=== PATIENT | female | born 1950 | race Caucasian/White ===

== ENCOUNTER 2018-10-05 21:31 | Inpatient (IN) | payer MEDICAID ==
[~2018-10-05] VITALS: Ht 157.5 cm; Wt 61.7 kg
[2018-10-05] MEDS ORDERED: SODIUM CHLORIDE 0.9% 1,000 ML IV ONE (23:30)
[2018-10-05] MEDS ORDERED: DEXAMETHASONE 10 MG/ML VIAL IV ONE (23:30)
[2018-10-05] MEDS ORDERED: ONDANSETRON HCL 4MG/2ML INJ IV STA (23:30)
[2018-10-05] MEDS ORDERED: LEVETIRACETAM 500MG PREMIX 100 ML IV ONE (23:30)
[2018-10-06] VITALS (9 sets, daily range): BP systolic 99–115; BP diastolic 62–67
[2018-10-06 00:12] LABS: BASOPHILS % 0.4 % (0.0-2.0); EOSINOPHILS % 0.4 % (0.0-5.0); HEMATOCRIT. 31.7 % (36.0-48.0); HEMOGLOBIN. 10.8 g/dL (12.0-16.0); LYMPHOCYTES % 19.5 % (20.0-50.0); MEAN CORPUSCULAR VOLUME 88.1 fL (81.0-99.0); MEAN PLATELET VOLUME 6.6 fl (7.4-10.4); MONOCYTES % 7.3 % (2.0-8.0); NEUTROPHILS % 72.4 % (40.0-76.0); PLATELET 297 x1000/uL (130-400); RED CELL DISTRIBUTION WIDTH 15.3 % (11.6-14.6)
[2018-10-06 00:29] LABS: CHLORIDE 101 mEq/L (98-107)
[2018-10-06 00:30] LABS: INR 1.1; PROTHROMBIN TIME 11.1 sec (9.6-11.0)
[2018-10-06] MEDS ORDERED: ONDANSETRON HCL 4MG/2ML INJ IV PRN (11:00)
[2018-10-06] MEDS ORDERED: LEVETIRACETAM 500 MG in SODIUM CHLORIDE 0.9% 100 ML IV SCH (11:00)
[2018-10-06] MEDS ORDERED: ACETAMINOPHEN 325MG TABLET PO PRN (11:00)
[2018-10-06] MEDS ORDERED: DEXTROSE 50% WATER 50ML SYRINGE IV PRN (11:00)
[2018-10-06] MEDS ORDERED: LORAZEPAM 2MG/ML CPJ IV PRN (11:00)
[2018-10-06] MEDS ORDERED: PNEUMOCOCCAL 23-VAL P-SAC VAC 0.5 ML IM ONE (12:00)
[2018-10-06] MEDS: BLOOD SUGAR DIAGNOSTIC STRIP TEST SCH ×3 (12:34→21:00)
[2018-10-06] MEDS: DEXAMETHASONE 4MG/ML 1ML VIAL IV SCH ×3 (12:53→23:41)
[2018-10-06] MEDS: INSULIN LISPRO 100 UNITS/ML SUBCUT SCH ×3 (13:28→21:00)
[2018-10-06] MEDS ORDERED: GADOBENATE DIMEGLUMINE 529 MG/ML 10ML IV ONE (14:34)
[2018-10-06] MEDS: FLUCONAZOLE 100MG TABLET PO SCH (15:56)
[2018-10-06] MEDS: SODIUM CHLORIDE 0.9% 1,000 ML IV SCH (15:57)
[2018-10-06] MEDS ORDERED: DEXAMETHASONE 4MG TABLET PO SCH (17:00)
[2018-10-06] MEDS: CALCIUM CARBONATE/VITAMIN D3 500MG TABLET PO SCH (17:41)
[2018-10-06] MEDS: LEVETIRACETAM 500 MG in SODIUM CHLORIDE 0.9% 100 ML IV SCH (21:43)
[2018-10-07] VITALS (10 sets, daily range): BP systolic 92–113; BP diastolic 57–72
[2018-10-07] MEDS: DEXAMETHASONE 4MG/ML 1ML VIAL IV SCH ×2 (06:47→13:31)
[2018-10-07 07:00] LABS: BASOPHILS % 0.2 % (0.0-2.0); HEMATOCRIT. 30.5 % (36.0-48.0); HEMOGLOBIN. 10.6 g/dL (12.0-16.0); LYMPHOCYTES % 12.4 % (20.0-50.0); MEAN CORPUSCULAR HEMOGLOBIN 30.3 pg (28.0-32.0); MEAN CORPUSCULAR VOLUME 86.9 fL (81.0-99.0); MEAN PLATELET VOLUME 6.9 fl (7.4-10.4); MONOCYTES % 1.5 % (2.0-8.0); NEUTROPHILS % 85.9 % (40.0-76.0); PLATELET 346 x1000/uL (130-400); RED BLOOD CELL COUNT 3.51 mill/uL (4.2-5.4)
[2018-10-07 07:07] LABS: CHLORIDE 109 mEq/L (98-107)
[2018-10-07] MEDS: BLOOD SUGAR DIAGNOSTIC STRIP TEST SCH ×2 (07:46→12:30)
[2018-10-07] MEDS: INSULIN LISPRO 100 UNITS/ML SUBCUT SCH ×2 (07:47→13:33)
[2018-10-07] MEDS: LEVETIRACETAM 500 MG in SODIUM CHLORIDE 0.9% 100 ML IV SCH (08:29)
[2018-10-07] MEDS: CALCIUM CARBONATE/VITAMIN D3 500MG TABLET PO SCH (08:29)
[2018-10-07] MEDS: FLUCONAZOLE 100MG TABLET PO SCH (08:29)
[2018-10-07] MEDS: SODIUM CHLORIDE 0.9% 1,000 ML IV SCH (08:37)
[2018-10-07] MEDS ORDERED: POTASSIUM CHLORIDE 20MEQ TABLET SR PO SCH (09:00)
[2018-10-07] MEDS ORDERED: KEPP500 MT (15:08)
[2018-10-07] MEDS ORDERED: DEX4 MT (15:08)
== END 2018-10-07 17:15 | disposition home or self-care (01) | DRG 53 ==
LOC: ER 21:31 → 5EST 10-06 04:23 → EDBEDREQ 10-06 04:26 → EDBEDREQTM 10-06 04:26 → EDBEDREQSVC 10-06 04:26 → ENRESERV 10-06 07:43
PROVIDERS: ADMIT Internal Medicine; ATTEND Internal Medicine
DX: G40.409 Other generalized epilepsy and epileptic syndromes, not intractable, without status epilepticus (principal); G93.6 Cerebral edema; E44.0 Moderate protein-calorie malnutrition; C79.31 Secondary malignant neoplasm of brain; C50.912 Malignant neoplasm of unspecified site of left female breast; D64.9 Anemia, unspecified; E11.9 Type 2 diabetes mellitus without complications; R26.9 Unspecified abnormalities of gait and mobility; R20.0 Anesthesia of skin; E87.6 Hypokalemia; I10 Essential (primary) hypertension; H91.3 Deaf nonspeaking, not elsewhere classified; Z92.21 Personal history of antineoplastic chemotherapy; Z92.3 Personal history of irradiation; Z68.24 Body mass index [BMI] 24.0-24.9, adult
CPT/HCPCS: 36415; 70486; 70553; 71045; 73060; 73080; 80048; 82962; 84484; 92610; 93005; 93970; 96365; 96375; 97162; 97166; 99285; A9577; J1100; J1815; J1953; J2405; J7030; J7050

== ENCOUNTER 2018-11-02 19:10 | Inpatient (IN) | payer MEDICAID, OTHER ==
[~2018-11-02] VITALS: Ht 165.1 cm; Wt 57.6 kg
[~2018-11-02 19:10] MED LIST: DEX4 MT; KEPP500 MT
[2018-11-03] LABS: BASOPHILS % 0.2 % (0.0-2.0); EOSINOPHILS % 0.2 % (0.0-5.0); HEMATOCRIT. 31.8 % (36.0-48.0); HEMOGLOBIN. 10.9 g/dL (12.0-16.0); LYMPHOCYTES % 19.5 % (20.0-50.0); MEAN CORPUSCULAR HEMOGLOBIN 30.1 pg (28.0-32.0); MEAN CORPUSCULAR VOLUME 87.4 fL (81.0-99.0); MEAN PLATELET VOLUME 6.6 fl (7.4-10.4); MONOCYTES % 5.9 % (2.0-8.0); NEUTROPHILS % 74.2 % (40.0-76.0); PLATELET 282 x1000/uL (130-400); RED BLOOD CELL COUNT 3.64 mill/uL (4.2-5.4); RED CELL DISTRIBUTION WIDTH 15.1 % (11.6-14.6)
[2018-11-03 00:09] LABS: CHLORIDE 104 mEq/L (98-107)
[2018-11-03] MEDS ORDERED: MORPHINE SULFATE 4 MG/ML CPJ (NOT FOR IM USE) IV ONE (00:45)
[2018-11-03] MEDS ORDERED: ASPIRIN 81MG TABLET PO ONE (00:45)
[2018-11-03 00:49] LABS: CLARITY URINE CLOUDY (CLEAR); COLOR URINE YELLOW (YELLOW); KETONES URINE 1+ (NEGATIVE); LEUKOCYTE ESTERASE URINE NEGATIVE (NEGATIVE); NITRITE URINE NEGATIVE (NEGATIVE); OCCULT BLOOD URINE 2+ (NEGATIVE); PH URINE 5.5 (4.5-8.0); PROTEIN URINE 1+ (NEGATIVE); SPECIFIC GRAVITY URINE 1.045 (1.005-1.030)
[2018-11-03] MEDS ORDERED: MIDAZOLAM HCL 2 MG/2 ML VIAL IV ONE (01:00)
[2018-11-03] MEDS ORDERED: HEPARIN 25,000 UNITS PREMIX 500 ML IV ONE ×2 (01:30→03:00)
[2018-11-03] MEDS ORDERED: ETOMIDATE 2MG/ML 10ML VIAL IV ONE (01:30)
[2018-11-03] MEDS ORDERED: HEPARIN 5000 UNITS/ML VIAL IV ONE (01:30)
[2018-11-03] MEDS ORDERED: ACETAMINOPHEN 325MG TABLET PO PRN (02:30)
[2018-11-03] MEDS ORDERED: HYDROCODONE/ACETAMINOPHEN 5/325MG TABLET PO PRN (02:30)
[2018-11-03] MEDS ORDERED: ONDANSETRON HCL 4MG/2ML INJ IV PRN (02:30)
[2018-11-03] MEDS ORDERED: MORPHINE SULFATE 2 MG/ML CPJ (NOT FOR IM USE) IV PRN (02:30)
[2018-11-03] MEDS ORDERED: CLONIDINE 0.1MG TABLET PO PRN (02:30)
[2018-11-03 03:28] LABS: INR 1.2; PARTIAL THROMBOPLASTIN TIME 22.9 sec (23.4-31.0); PROTHROMBIN TIME 11.8 sec (9.6-11.0)
[2018-11-03 04:47] LABS: CREATINE KINASE MB FRACTION 3.5 ng/mL (0.5-3.6)
[2018-11-03 05:18] VITALS: BP 107/61
[2018-11-03 06:14] VITALS: BP 107/61
[2018-11-03] MEDS ORDERED: KEPP500 PO (06:35)
[2018-11-03] MEDS ORDERED: DEXA4TAB PO (06:35)
[2018-11-03 08:00] VITALS: BP 92/62
[2018-11-03] MEDS: METOPROLOL TARTRATE 25MG TABLET PO SCH ×2 (08:51→22:11)
[2018-11-03] MEDS ORDERED: ENOXAPARIN 60MG/0.6ML SYR SUBCUT SCH (09:00)
[2018-11-03] MEDS ORDERED: LORAZEPAM 2MG/ML CPJ IV PRN (09:30)
[2018-11-03] MEDS ORDERED: DEXTROSE 50% WATER 50ML SYRINGE IV PRN (12:00)
[2018-11-03] MEDS: BLOOD SUGAR DIAGNOSTIC STRIP TEST SCH ×2 (12:20→21:00)
[2018-11-03 12:26] LABS: T4 FREE 1.15 ng/dL (0.76-1.46)
[2018-11-03 12:50] VITALS: BP 102/64
[2018-11-03] MEDS: ENOXAPARIN 40MG/0.4ML SYR SUBCUT SCH (13:06)
[2018-11-03] MEDS ORDERED: IOHEXOL-350 100 ML BOTTLE ONE (13:09)
[2018-11-03] MEDS: LEVETIRACETAM 500MG TABLET PO SCH ×2 (13:33→22:10)
[2018-11-03] MEDS: INSULIN LISPRO 100 UNITS/ML SUBCUT SCH ×2 (13:33→21:00)
[2018-11-03 16:00] VITALS: BP 99/66
[2018-11-03 17:36] LABS: CREATINE KINASE MB FRACTION 1.9 ng/mL (0.5-3.6)
[2018-11-03 20:00] VITALS: BP 147/110
[2018-11-04] VITALS: BP 99/55
[2018-11-04 00:06] LABS: CREATINE KINASE MB FRACTION 1.2 ng/mL (0.5-3.6)
[2018-11-04 04:00] VITALS: BP 100/45
[2018-11-04] MEDS: BLOOD SUGAR DIAGNOSTIC STRIP TEST SCH ×2 (06:39→12:20)
[2018-11-04 07:32] LABS: BASOPHILS % 0.5 % (0.0-2.0); EOSINOPHILS % 0.7 % (0.0-5.0); HEMATOCRIT. 35.2 % (36.0-48.0); HEMOGLOBIN. 11.8 g/dL (12.0-16.0); LYMPHOCYTES % 31.3 % (20.0-50.0); MEAN CORPUSCULAR HEMOGLOBIN 29.6 pg (28.0-32.0); MEAN CORPUSCULAR VOLUME 88.4 fL (81.0-99.0); MONOCYTES % 7.6 % (2.0-8.0); NEUTROPHILS % 59.9 % (40.0-76.0); PLATELET 302 x1000/uL (130-400); RED BLOOD CELL COUNT 3.98 mill/uL (4.2-5.4); RED CELL DISTRIBUTION WIDTH 14.9 % (11.6-14.6)
[2018-11-04 07:48] LABS: CHLORIDE 106 mEq/L (98-107)
[2018-11-04] MEDS: INSULIN LISPRO 100 UNITS/ML SUBCUT SCH ×2 (07:50→13:58)
[2018-11-04 07:56] LABS: LDL CHOLESTEROL 159 mg/dL (5-100)
[2018-11-04 07:57] LABS: HDL CHOLESTEROL 37 mg/dL (40-59)
[2018-11-04 08:00] VITALS: BP 91/63
[2018-11-04] MEDS: METOPROLOL TARTRATE 25MG TABLET PO SCH (09:00)
[2018-11-04] MEDS: LEVETIRACETAM 500MG TABLET PO SCH (09:03)
[2018-11-04 11:27] VITALS: BP 91/63
[2018-11-04 12:00] VITALS: BP 86/58
[2018-11-04] MEDS: ENOXAPARIN 40MG/0.4ML SYR SUBCUT SCH (13:56)
[2018-11-04] MEDS ORDERED: ATORVASTATIN CALCIUM 40MG TABLET PO SCH (21:00)
== END 2018-11-04 15:12 | disposition home or self-care (01) | DRG 190 ==
LOC: ER 19:10 → 6WST 11-03 01:27 → SUPCPDRO 11-03 02:19 → ENRESERV 11-03 02:54
PROVIDERS: ADMIT Hospitalist; ATTEND Hospitalist
PROC: 4A00X4Z Measurement of Central Nervous Electrical Activity, External Approach (ICD-10-PCS; principal; 2018-11-04)
DX: I21.4 Non-ST elevation (NSTEMI) myocardial infarction (principal); C79.31 Secondary malignant neoplasm of brain; E11.65 Type 2 diabetes mellitus with hyperglycemia; S03.00XA Dislocation of jaw, unspecified side, initial encounter; I42.9 Cardiomyopathy, unspecified; C50.919 Malignant neoplasm of unspecified site of unspecified female breast; G40.409 Other generalized epilepsy and epileptic syndromes, not intractable, without status epilepticus; E78.5 Hyperlipidemia, unspecified; H91.90 Unspecified hearing loss, unspecified ear; W01.0XXA Fall on same level from slipping, tripping and stumbling without subsequent striking against object, initial encounter; Y93.89 Activity, other specified; Y92.89 Other specified places as the place of occurrence of the external cause; Y99.8 Other external cause status; Z79.899 Other long term (current) drug therapy
CPT/HCPCS: 36415; 70110; 70486; 71045; 71275; 80061; 82550; 82553; 82962; 83036; 83880; 84439; 84443; 84484; 85379; 93005; 93306; 93970; 96374; 96375; 97162; 99285; J1644; J1650; J1815; J2250; J2270; J3490; Q9967

== ENCOUNTER 2018-11-29 01:35 | Inpatient (IN) | payer MEDICAID ==
[2018-11-29] VITALS (29 sets, daily range): BP systolic 98–138; BP diastolic 52–85
[~2018-11-29] VITALS: Ht 160 cm; Wt 61.2 kg
[~2018-11-29 01:35] MED LIST changes: -DEX4 MT; -KEPP500 MT; +KEPP500 PO
[2018-11-29] MEDS ORDERED: KETOROLAC 30MG/ML VIAL IV STA (02:04)
[2018-11-29] MEDS ORDERED: SODIUM CHLORIDE 0.9% 1,000 ML IV ONE (02:04)
[2018-11-29] MEDS ORDERED: ONDANSETRON HCL 4MG/2ML INJ IV STA (02:04)
[2018-11-29] MEDS ORDERED: MORPHINE SULFATE 4 MG/ML CPJ (NOT FOR IM USE) IV STA (02:04)
[2018-11-29 02:29] LABS: CLARITY URINE CLOUDY (CLEAR); COLOR URINE YELLOW (YELLOW); KETONES URINE TRACE (NEGATIVE); LEUKOCYTE ESTERASE URINE TRACE (NEGATIVE); NITRITE URINE NEGATIVE (NEGATIVE); OCCULT BLOOD URINE TRACE (NEGATIVE); PROTEIN URINE 1+ (NEGATIVE); SPECIFIC GRAVITY URINE 1.038 (1.005-1.030)
[2018-11-29 02:45] LABS: BASOPHILS % 0.3 % (0.0-2.0); LYMPHOCYTES % 16.7 % (20.0-50.0); MEAN CORPUSCULAR HEMOGLOBIN 29.3 pg (28.0-32.0); MEAN CORPUSCULAR VOLUME 87.5 fL (81.0-99.0); MEAN PLATELET VOLUME 6.7 fl (7.4-10.4); MONOCYTES % 5.9 % (2.0-8.0); NEUTROPHILS % 77.1 % (40.0-76.0); PLATELET 349 x1000/uL (130-400); RED BLOOD CELL COUNT 3.08 mill/uL (4.2-5.4); RED CELL DISTRIBUTION WIDTH 16.1 % (11.6-14.6)
[2018-11-29 02:53] LABS: CHLORIDE 100 mEq/L (98-107); INR 1.1; PROTHROMBIN TIME 11.3 sec (9.6-11.0)
[2018-11-29] MEDS ORDERED: HYDROMORPHONE HCL/PF 2MG/ML CPJ IV ONE (04:00)
[2018-11-29] MEDS ORDERED: PIPERACILLIN/TAZOBACTAM 3.375GM/50ML PREMIX IV SCH (04:30)
[2018-11-29] MEDS ORDERED: SODIUM CHLORIDE 0.9% 500 ML IV ONE (04:30)
[2018-11-29] MEDS ORDERED: BUPIVACAINE HCL 0.5% (5MG/ML) 50ML ONE (05:45)
[2018-11-29] MEDS ORDERED: BACITRACIN 50,000 UNITS/VIAL ONE ×2 (05:45→08:26)
[2018-11-29] MEDS ORDERED: FENTANYL CITRATE/PF 50MCG/ML 2ML VIAL ONE (06:18)
[2018-11-29] MEDS ORDERED: MIDAZOLAM HCL 2 MG/2 ML VIAL ONE (06:18)
[2018-11-29] MEDS ORDERED: PHENYLEPHRINE HCL 10 MG/ML 1ML (IV VIAL) IV ONE (06:22)
[2018-11-29] MEDS ORDERED: SODIUM CHLORIDE 0.9% 10ML VIAL ONE (06:22)
[2018-11-29] MEDS ORDERED: EPHEDRINE SULFATE 50MG/ML VIAL ONE (06:22)
[2018-11-29] MEDS ORDERED: LIDOCAINE HCL/PF 1% 10 MG/ML 5ML VIAL ONE (06:26)
[2018-11-29] MEDS ORDERED: PROPOFOL 200MG/20ML VIAL IV ONE (06:26)
[2018-11-29] MEDS ORDERED: ROCURONIUM BROMIDE 10MG/ML VIAL 5ML IV ONE (07:14)
[2018-11-29] MEDS ORDERED: SUCCINYLCHOLINE CHLORIDE 200MG/10ML IV ONE (07:14)
[2018-11-29] MEDS ORDERED: METRONIDAZOLE 500 MG PREMIX 100 ML IV ONE (07:53)
[2018-11-29] MEDS ORDERED: LEVOFLOXACIN 500MG PREMIX 100 ML IV ONE (07:53)
[2018-11-29] MEDS ORDERED: NEOSTIGMINE METHYLSULFATE 1MG/ML 10 ML VIAL ONE (09:21)
[2018-11-29] MEDS ORDERED: GLYCOPYRROLATE 0.2 MG/ML 2ML VIAL ONE (09:22)
[2018-11-29] MEDS ORDERED: ONDANSETRON HCL 4MG/2ML INJ IV PRN ×3 (09:30→10:15)
[2018-11-29] MEDS ORDERED: ACETAMINOPHEN 650MG SUPP PR PRN (09:30)
[2018-11-29] MEDS ORDERED: LEVOFLOXACIN 500MG PREMIX 100 ML IV SCH (09:30)
[2018-11-29] MEDS: BLOOD SUGAR DIAGNOSTIC STRIP TEST SCH ×3 (10:12→21:07)
[2018-11-29] MEDS ORDERED: DEXTROSE 50% WATER 50ML SYRINGE IV PRN (10:15)
[2018-11-29] MEDS: HYDROMORPHONE HCL/PF 2MG/ML CPJ IV PRN ×2 (10:16→10:39)
[2018-11-29] MEDS: DEXT 5%/0.45% NACL KCL 20MEQ/L 1,000 ML IV SCH ×2 (11:26→21:06)
[2018-11-29] MEDS ORDERED: LORAZEPAM 2MG/ML CPJ IV PRN (11:30)
[2018-11-29] MEDS ORDERED: ASPI-1393 MT (12:26)
[2018-11-29] MEDS ORDERED: LANTUSUD SUBCUT (12:26)
[2018-11-29] MEDS ORDERED: CALC-787 MT (12:26)
[2018-11-29] MEDS ORDERED: DEXA4TAB MT (12:26)
[2018-11-29] MEDS ORDERED: ATOR40TA70 MT (12:26)
[2018-11-29] MEDS: INSULIN LISPRO 100 UNITS/ML SUBCUT SCH ×3 (12:47→21:18)
[2018-11-29] MEDS: MORPHINE SULFATE 2 MG/ML CPJ (NOT FOR IM USE) IV PRN (12:58)
[2018-11-29] MEDS: LEVETIRACETAM 500 MG in SODIUM CHLORIDE 0.9% 100 ML IV SCH ×2 (13:51→21:06)
[2018-11-29] MEDS: METRONIDAZOLE 500 MG PREMIX 100 ML IV SCH (15:07)
[2018-11-29] MEDS: FAMOTIDINE 20MG/2ML VIAL IV SCH (21:07)
[2018-11-30] VITALS (48 sets, daily range): BP systolic 80–123; BP diastolic 40–72
[2018-11-30] MEDS: METRONIDAZOLE 500 MG PREMIX 100 ML IV SCH ×3 (00:18→22:34)
[2018-11-30] MEDS: MORPHINE SULFATE 2 MG/ML CPJ (NOT FOR IM USE) IV PRN ×4 (05:09→17:48)
[2018-11-30] MEDS: DEXT 5%/0.45% NACL KCL 20MEQ/L 1,000 ML IV SCH ×2 (06:22→16:30)
[2018-11-30] MEDS: BLOOD SUGAR DIAGNOSTIC STRIP TEST SCH ×4 (07:50→21:28)
[2018-11-30 09:01] LABS: HEMATOCRIT. 22.5 % (36.0-48.0); HEMOGLOBIN. 7.6 g/dL (12.0-16.0); MEAN CORPUSCULAR HEMOGLOBIN 29.8 pg (28.0-32.0); MEAN CORPUSCULAR VOLUME 88.1 fL (81.0-99.0); PLATELET 222 x1000/uL (130-400); RED BLOOD CELL COUNT 2.55 mill/uL (4.2-5.4); RED CELL DISTRIBUTION WIDTH 16.3 % (11.6-14.6)
[2018-11-30] MEDS: FAMOTIDINE 20MG/2ML VIAL IV SCH ×2 (09:01→21:30)
[2018-11-30] MEDS: LEVETIRACETAM 500 MG in SODIUM CHLORIDE 0.9% 100 ML IV SCH ×2 (09:01→21:30)
[2018-11-30] MEDS: INSULIN LISPRO 100 UNITS/ML SUBCUT SCH ×4 (09:03→21:00)
[2018-11-30 09:08] LABS: CHLORIDE 106 mEq/L (98-107)
[2018-11-30 09:43] LABS: PLATELET ESTIMATE NORMAL
[2018-11-30] MEDS ORDERED: IPRATROPIUM/ALBUTEROL 0.5-3(2.5)MG/3ML NEB HHN PRN (11:00)
[2018-11-30] MEDS ORDERED: ALBUMIN HUMAN 25GM/100ML (25%) IV NR (11:30)
[2018-11-30] MEDS ORDERED: LEVOFLOXACIN 750MG PREMIX 150 ML IV NR (13:00)
[2018-12-01] VITALS (45 sets, daily range): BP systolic 91–131; BP diastolic 31–80
[2018-12-01] MEDS: DEXT 5%/0.45% NACL KCL 20MEQ/L 1,000 ML IV SCH ×2 (02:46→18:50)
[2018-12-01] MEDS: MORPHINE SULFATE 2 MG/ML CPJ (NOT FOR IM USE) IV PRN ×3 (02:47→23:19)
[2018-12-01 05:27] LABS: HEMATOCRIT. 21.2 % (36.0-48.0); MEAN CORPUSCULAR HEMOGLOBIN 28.8 pg (28.0-32.0); MEAN CORPUSCULAR VOLUME 87.1 fL (81.0-99.0); MEAN PLATELET VOLUME 6.9 fl (7.4-10.4); PLATELET 203 x1000/uL (130-400); RED BLOOD CELL COUNT 2.43 mill/uL (4.2-5.4); RED CELL DISTRIBUTION WIDTH 15.9 % (11.6-14.6)
[2018-12-01] MEDS: METRONIDAZOLE 500 MG PREMIX 100 ML IV SCH ×3 (05:27→23:13)
[2018-12-01 05:34] LABS: CHLORIDE 107 mEq/L (98-107)
[2018-12-01] MEDS: BLOOD SUGAR DIAGNOSTIC STRIP TEST SCH ×3 (07:40→20:42)
[2018-12-01] MEDS: INSULIN LISPRO 100 UNITS/ML SUBCUT SCH ×4 (08:21→20:44)
[2018-12-01] MEDS: LEVETIRACETAM 500 MG in SODIUM CHLORIDE 0.9% 100 ML IV SCH (08:21)
[2018-12-01] MEDS: FAMOTIDINE 20MG/2ML VIAL IV SCH ×2 (08:21→20:31)
[2018-12-01 09:37] LABS: PLATELET ESTIMATE NORMAL
[2018-12-01] MEDS: LEVOFLOXACIN 500MG PREMIX 100 ML IV SCH (18:51)
[2018-12-01] MEDS ORDERED: ATORVASTATIN CALCIUM 40MG TABLET GT SCH (21:00)
[2018-12-02] VITALS: BP 124/71
[2018-12-02 00:16] LABS: HEMOGLOBIN 9.7 g/dL (12.0-16.0)
[2018-12-02] MEDS: LEVETIRACETAM 500 MG in SODIUM CHLORIDE 0.9% 100 ML IV SCH ×3 (01:08→21:40)
[2018-12-02 04:00] VITALS: BP 105/65
[2018-12-02] MEDS: DEXT 5%/0.45% NACL KCL 20MEQ/L 1,000 ML IV SCH ×3 (05:56→19:01)
[2018-12-02] MEDS: METRONIDAZOLE 500 MG PREMIX 100 ML IV SCH ×3 (05:56→21:40)
[2018-12-02] MEDS: BLOOD SUGAR DIAGNOSTIC STRIP TEST SCH ×4 (06:39→21:40)
[2018-12-02] MEDS: MORPHINE SULFATE 2 MG/ML CPJ (NOT FOR IM USE) IV PRN ×4 (06:41→22:10)
[2018-12-02 08:00] VITALS: BP 104/61
[2018-12-02] MEDS ORDERED: DEXAMETHASONE 4MG TABLET GT SCH (09:00)
[2018-12-02] MEDS ORDERED: INSULIN GLARGINE UD 100 UNITS/ML SYR SUBCUT SCH (09:00)
[2018-12-02] MEDS ORDERED: LEVETIRACETAM 500MG TABLET PO SCH (09:00)
[2018-12-02] MEDS: INSULIN LISPRO 100 UNITS/ML SUBCUT SCH ×4 (09:00→21:00)
[2018-12-02] MEDS: FAMOTIDINE 20MG/2ML VIAL IV SCH ×2 (09:19→21:40)
[2018-12-02] MEDS: LEVOFLOXACIN 500MG PREMIX 100 ML IV SCH (11:35)
[2018-12-02 12:00] VITALS: BP 108/68
[2018-12-02 16:00] VITALS: BP 109/67
[2018-12-02] MEDS: FLUCONAZOLE 400MG/200ML BAG 200 ML IV SCH (19:13)
[2018-12-02 20:00] VITALS: BP 112/78
[2018-12-03] VITALS: BP 132/76
[2018-12-03 04:00] VITALS: BP 120/67
[2018-12-03] MEDS: DEXT 5%/0.45% NACL KCL 20MEQ/L 1,000 ML IV SCH ×2 (06:19→13:55)
[2018-12-03] MEDS: METRONIDAZOLE 500 MG PREMIX 100 ML IV SCH ×3 (06:19→22:22)
[2018-12-03] MEDS: BLOOD SUGAR DIAGNOSTIC STRIP TEST SCH ×4 (06:20→21:00)
[2018-12-03 08:00] VITALS: BP_SYST 116; BP_SYST 154; BP_DIAS 46; BP_DIAS 73
[2018-12-03] MEDS: INSULIN LISPRO 100 UNITS/ML SUBCUT SCH ×4 (08:23→21:00)
[2018-12-03] MEDS ORDERED: BISACODYL 5MG TABLET PO PRN (09:15)
[2018-12-03] MEDS: LEVETIRACETAM 500 MG in SODIUM CHLORIDE 0.9% 100 ML IV SCH ×2 (09:35→22:22)
[2018-12-03] MEDS: DOCUSATE SODIUM 100MG CAPSULE PO SCH (09:35)
[2018-12-03] MEDS ORDERED: MAGNESIUM CITRATE 300ML SOLUTION PO NR (10:30)
[2018-12-03 12:00] VITALS: BP 119/73
[2018-12-03] MEDS: MORPHINE SULFATE 2 MG/ML CPJ (NOT FOR IM USE) IV PRN ×2 (12:30→18:38)
[2018-12-03 16:00] VITALS: BP 115/56
[2018-12-03] MEDS: FLUCONAZOLE 400MG/200ML BAG 200 ML IV SCH (16:48)
[2018-12-03 20:00] VITALS: BP 124/71
[2018-12-03] MEDS ORDERED: FAMOTIDINE 20MG/2ML VIAL IV SCH (21:00)
[2018-12-04] VITALS: BP 128/71
[2018-12-04] MEDS: DEXT 5%/0.45% NACL KCL 20MEQ/L 1,000 ML IV SCH ×2 (02:53→10:52)
[2018-12-04 04:00] VITALS: BP 112/66
[2018-12-04] MEDS: BLOOD SUGAR DIAGNOSTIC STRIP TEST SCH ×3 (06:39→17:15)
[2018-12-04] MEDS: METRONIDAZOLE 500 MG PREMIX 100 ML IV SCH ×2 (06:39→13:12)
[2018-12-04] MEDS: INSULIN LISPRO 100 UNITS/ML SUBCUT SCH ×3 (07:50→17:15)
[2018-12-04 08:00] VITALS: BP 121/75
[2018-12-04] MEDS: LEVETIRACETAM 500 MG in SODIUM CHLORIDE 0.9% 100 ML IV SCH (08:07)
[2018-12-04] MEDS: MORPHINE SULFATE 2 MG/ML CPJ (NOT FOR IM USE) IV PRN (08:08)
[2018-12-04] MEDS: DOCUSATE SODIUM 100MG CAPSULE PO SCH (09:01)
[2018-12-04 12:00] VITALS: BP 119/70
[2018-12-04] MEDS ORDERED: MORPHINE SULFATE 2 MG/ML CPJ (NOT FOR IM USE) IV PRN (15:15)
[2018-12-04 16:00] VITALS: BP 108/66
[2018-12-04] MEDS: FLUCONAZOLE 400MG/200ML BAG 200 ML IV SCH (17:04)
[2018-12-04 18:39] VITALS: BP 136/80
== END 2018-12-04 20:28 | disposition home or self-care (01) | DRG 710 ==
LOC: ER 01:35 → EDBEDREQ 04:29 → EDBEDREQTM 04:29 → ENRESERV 07:38 → CVICU 07:56 → 6EST 12-01 17:27
PROVIDERS: ADMIT Family Medicine; ATTEND Family Medicine
PROC: 0DH63UZ Insertion of Feeding Device into Stomach, Percutaneous Approach (ICD-10-PCS; 2018-11-29)
PROC: 0DB68ZX Excision of Stomach, Via Natural or Artificial Opening Endoscopic, Diagnostic (ICD-10-PCS; 2018-11-29)
PROC: 0W3P4ZZ Control Bleeding in Gastrointestinal Tract, Percutaneous Endoscopic Approach (ICD-10-PCS; 2018-11-29)
PROC: 30253N1 (ICD-10-PCS; principal; 2018-12-01)
DX: A41.9 Sepsis, unspecified organism (principal); K25.5 Chronic or unspecified gastric ulcer with perforation; E44.0 Moderate protein-calorie malnutrition; C79.31 Secondary malignant neoplasm of brain; D70.1 Agranulocytosis secondary to cancer chemotherapy; K56.7 Ileus, unspecified; C50.919 Malignant neoplasm of unspecified site of unspecified female breast; K57.20 Diverticulitis of large intestine with perforation and abscess without bleeding; E11.65 Type 2 diabetes mellitus with hyperglycemia; D64.9 Anemia, unspecified; Z85.3 Personal history of malignant neoplasm of breast; G40.909 Epilepsy, unspecified, not intractable, without status epilepticus; K80.20 Calculus of gallbladder without cholecystitis without obstruction; K43.9 Ventral hernia without obstruction or gangrene; K76.89 Other specified diseases of liver; I10 Essential (primary) hypertension; Z79.899 Other long term (current) drug therapy; Z87.11 Personal history of peptic ulcer disease; Z90.3 Acquired absence of stomach [part of]; Z68.23 Body mass index [BMI] 23.0-23.9, adult; T45.1X5A Adverse effect of antineoplastic and immunosuppressive drugs, initial encounter; X58.XXXA Exposure to other specified factors, initial encounter; Y93.89 Activity, other specified; Y92.89 Other specified places as the place of occurrence of the external cause; Y99.8 Other external cause status
CPT/HCPCS: 36415; 71045; 74176; 80048; 81003; 82962; 83880; 84484; 85014; 85018; 86850; 86900; 86920; 87070; 87075; 87077; 88305; 88313; 93005; 97116; 97162; 99291; J0330; J1170; J1450; J1815; J1885; J1953; J1956; J2250; J2270; J2370; J2405; J2543; J2704; J2710; J3010; J3490; J7030; J7040; J7050; P9016; P9021; P9047

== ENCOUNTER 2018-12-25 16:56 | Emergency (ER) | payer MEDICAID ==
[~2018-12-25] VITALS: Ht 152.4 cm; Wt 52.0 kg
[~2018-12-25 16:56] MED LIST changes: +ASPI-1393 MT; +ATOR40TA70 MT; +CALC-787 MT; +DEXA4TAB MT; +LANTUSUD SUBCUT
[2018-12-25] MEDS ORDERED: ONDANSETRON HCL 4MG/2ML INJ IV ONE (21:00)
[2018-12-25] MEDS ORDERED: ETOMIDATE 2MG/ML 10ML VIAL IV NR (21:00)
[2018-12-25] MEDS ORDERED: MORPHINE SULFATE 4 MG/ML CPJ (NOT FOR IM USE) IV ONE (21:00)
[2018-12-26 01:20] VITALS: BP 117/69
== END 2018-12-26 01:30 | disposition home or self-care (01) ==
LOC: ER 16:56
DX: S03.03XA Dislocation of jaw, bilateral, initial encounter (principal); E11.9 Type 2 diabetes mellitus without complications; I10 Essential (primary) hypertension; Z85.3 Personal history of malignant neoplasm of breast; H91.3 Deaf nonspeaking, not elsewhere classified; Z79.82 Long term (current) use of aspirin; Z79.4 Long term (current) use of insulin; Z98.890 Other specified postprocedural states; X58.XXXA Exposure to other specified factors, initial encounter; Y93.89 Activity, other specified; Y92.018 Other place in single-family (private) house as the place of occurrence of the external cause
CPT/HCPCS: 21480; 70486; 96374; 96375; 99152; 99285; J2270; J2405; J3490

== ENCOUNTER 2019-03-19 10:22 | Emergency (ER) | payer MEDICAID ==
[~2019-03-19] VITALS: Ht 162.6 cm; Wt 50.0 kg
[2019-03-19 14:39] LABS: HEMATOCRIT 31.3 % (36.0-48.0); MEAN CORPUSCULAR HEMOGLOBIN 26.5 pg (28.0-32.0); MEAN CORPUSCULAR VOLUME 82.7 fL (81.0-99.0); PLATELET 562 x1000/uL (130-400); RED BLOOD CELL COUNT 3.78 mill/uL (4.2-5.4); RED CELL DISTRIBUTION WIDTH 16.5 % (11.6-14.6)
[2019-03-19 14:45] LABS: CHLORIDE 106 mEq/L (98-107)
[2019-03-19] MEDS ORDERED: MORPHINE SULFATE 2 MG/ML CPJ (NOT FOR IM USE) IV ONE (15:15)
[2019-03-19] MEDS ORDERED: ETOMIDATE 2MG/ML 10ML VIAL IV ONE (18:00)
[2019-03-19] MEDS ORDERED: ONDANSETRON HCL 4MG/2ML INJ IV ONE (18:00)
[2019-03-19] MEDS ORDERED: KETAMINE HCL 50 MG/ML 10ML ONE (19:10)
[2019-03-19 22:02] VITALS: BP 99/58
== END 2019-03-19 22:04 | disposition home or self-care (01) ==
LOC: ER 10:22
DX: S03.01XA Dislocation of jaw, right side, initial encounter (principal); W18.39XA Other fall on same level, initial encounter; Y93.89 Activity, other specified; Y92.89 Other specified places as the place of occurrence of the external cause; Y99.8 Other external cause status; E11.9 Type 2 diabetes mellitus without complications; I10 Essential (primary) hypertension; Z79.82 Long term (current) use of aspirin; Z79.899 Other long term (current) drug therapy; Z79.4 Long term (current) use of insulin
CPT/HCPCS: 21480; 36415; 70486; 80048; 85027; 96374; 99152; 99285; J2405; J3490; J2270